=== PATIENT | female | born 1940 | race Caucasian/White ===

== ENCOUNTER 2021-05-16 15:25 | Emergency (ER) | payer MEDICARE, BC ==
[~2021-05-16] VITALS: Ht 157.5 cm; Wt 56.0 kg
--- NOTE | 2021-05-16 15:35 | PHYS DOC ---
General Adult EDM: Chief Complaint: MECHANICAL FALL HPI: HPI: Patient is a 80-year-old female brought in by EMS after a fall. Patient stepped off a ledge on a patio and fell onto her left side per denies any head injury loss conscious. Denies any blood thinner use. Complaining of pain in her left upper arm and left hip. Has not mailed bear weight since Review of Systems: Review of Systems: All other systems within normal limits except for as noted in the HPI Physical Exam: PE: Constitutional: Well developed, well nourished, no acute distress, non-toxic appearance. [] HENT: Normocephalic, atraumatic, bilateral external ears normal, nose normal. [] Eyes: PERRLA, conjunctiva normal, no discharge. [] Neck: No rigidity, supple, no stridor. [] Cardiovascular: Regular rate and rhythm, brisk cap refill [] Lungs & Thorax: Non labored symmetric respirations, no tachypnea or respiratory distress [] Abdomen: Soft, nondistended. Skin: Warm, dry, no erythema, no rash. [] Back: Unremarkable Extremities: No deformities, range of motion grossly intact, no lower extremity edema. Test with patient over left upper arm and left hip, deformity, no pain with passive leg roll [] Neurologic: Alert and oriented X 3, no focal deficits noted. [] Psychologic: Affect normal, judgement normal, mood normal. [] EKG: EKG: [] Radiology/Procedures: Radiology/Procedures: [address] [address] IMAGING REPORT Signed PATIENT: ELIZABETH HOOPER AACCOUNT: [id number] : 1940 LOCATION: ER AGE: 80 SEX: F EXAM STATUS: REG ER ORD. PHYSICIAN: STEPH SPARKS MD REASON: fall, left hip pain PROCEDURE: HUMERUS LEFT EXAM: Left humerus, 3 views. HISTORY: Pain. COMPARISON: None. FINDINGS: 3 views of the left humerus are obtained. There is no acute fracture, dislocation or subluxation. There is minimal glenohumeral and acromioclavicular joint spurring. IMPRESSION: No acute osseous finding. Electronically signed by: Yissel Caban MD (05/16/2021 4:54 PM) [id number] DICTATED AND SIGNED BY: YISSEL CABAN MD DATE: 05/16/211652 CC: STEPH SPARKS MD; NON,STAFF ~MTH0 0 [][place] [address] IMAGING REPORT Signed PATIENT: ELIZABETH HOOPER AACCOUNT: [id number] : 1940 LOCATION: ER AGE: 80 SEX: F EXAM STATUS: REG ER ORD. PHYSICIAN: STEPH SPARKS MD REASON: fall, left hip pain PROCEDURE: HIP LEFT 2V WITH PELVIS EXAM: Frontal pelvis with two-view left hip. HISTORY: Fall, left hip pain. COMPARISON: None. FINDINGS: There is an impacted, comminuted fracture of the left intertrochanteric femur. The joint spaces of both hips are maintained. Osteopenia is at least moderate. There are moderate degenerative changes of the lower lumbar spine with at least mild dextroscoliosis. IMPRESSION: 1. Impacted, comminuted fracture of the left intertrochanteric femur. Electronically signed by: Pradeep Alcantara MD (05/16/2021 4:59 PM) [facility] DICTATED AND SIGNED BY: ELANA ALCANTARA MD DATE: 05/16/211656 CC: STEPH SPARKS MD; NON,STAFF ~MTH0 0 Heart Score: C/O Chest Pain: No Risk Factors: Risk Factors: DM, Current or recent (<one month) smoker, HTN, HLP, family history of CAD, obesity. Risk Scores: Score 0 - 3: 2.5% MACE over next 6 weeks - Discharge Home Score 4 - 6: 20.3% MACE over next 6 weeks - Admit for Clinical Observation Score 7 - 10: 72.7% MACE over next 6 weeks - Early Invasive Strategies Course & Med Decision Making: Course & Med Decision Making Pertinent Labs and Imaging studies reviewed. (See chart for details) Also placed to Dr. Wheeler with orthopedics. Patient transferred to [place], admitted to hospitalist Dr. Matos CT scan ordered due to patient's age and fall from standing, patient refusing CT stating she does not want to "extra radiation" [] Carlos Disclaimer: Carlos Disclaimer: This electronic medical record was generated, in whole or in part, using a voice recognition dictation system. Departure Departure: Impression: Primary Impression: Fall (on) (from) other stairs and steps, initial encounter Additional Impression: Closed intertrochanteric fracture of left femur Disposition: 02 SHORT TERM HOSPITAL Condition: STABLE STEPH SPARKS MD May 16, 2021 15:35
--- NOTE | 2021-05-16 16:56 | RAD ---
EXAM: Left humerus, 3 views. HISTORY: Pain. COMPARISON: None. FINDINGS: 3 views of the left humerus are obtained. There is no acute fracture, dislocation or sublux ation. There is minimal glenohumeral and acromioclavicular joint spurring. IMPRESSION: No acute osseous finding. Electronically signed by: Yissel Rodriguez MD (05/16/2021 4:54 PM) [id number]
--- NOTE | 2021-05-16 17:02 | RAD ---
EXAM: Frontal pelvis with two-view left hip. HISTORY: Fall, left hip pain. COMPARISON: None. FINDINGS: There is an impacted, comminuted fracture of the left intertrochanteric femur. The joint sp aces of both hips are maintained. Osteopenia is at least moderate. There are moderate degenerative ch anges of the lower lumbar spine with at least mild dextroscoliosis. IMPRESSION: 1. Impacted, comminuted fracture of the left intertrochanteric femur. Electronically signed by: Pradeep Alcantara MD (05/16/2021 4:59 PM) [facility]
[2021-05-16 17:23] LABS: BASO % 0 % (0-3); EOS # 0.1 x10^3/uL (0.0-0.7); EOS % 1 % (0-3); HEMATOCRIT 38.8 % (36.0-47.0); HEMOGLOBIN 12.6 g/dL (12.0-15.5); LYMPH # 1.2 x10^3/uL (1.0-4.8); LYMPH % 10 % (24-48); MEAN CORPUSCULAR HEMOGLOBIN 30 pg (25-35); MEAN CORPUSCULAR HGB CONC 33 g/dL (31-37); MEAN CORPUSCULAR VOLUME 91 fL (79-100); MONO # 0.7 x10^3/uL (0.0-1.1); MONO % 6 % (0-9); NEUT # 10.3 x10^3uL (1.8-7.7); NEUT % 83 % (31-73); PLATELET COUNT 248 x10^3/uL (140-400); RED BLOOD COUNT 4.25 x10^6/uL (3.50-5.40); WHITE BLOOD COUNT 12.3 x10^3/uL (4.0-11.0)
[2021-05-16 17:31] LABS: CALCIUM 8.8 mg/dL (8.5-10.1); CREATININE 0.9 mg/dL (0.6-1.0); GFR 59.9; POTASSIUM 3.6 mmol/L (3.5-5.1)
[2021-05-16 17:37] LABS: ALBUMIN 3.8 g/dL (3.4-5.0); ALBUMIN/GLOBULIN RATIO 1.1 (1.0-1.7); TOTAL BILIRUBIN 0.3 mg/dL (0.2-1.0); TOTAL PROTEIN 7.3 g/dL (6.4-8.2)
--- NOTE | 2021-05-16 18:13 | RAD ---
EXAMINATION: Chest radiograph. VIEWS: Single AP view of the chest COMPARISON: None INDICATION:80 years, Female, preop. FINDINGS: Normal cardiomediastinal silhouette. Minimal left basilar curvilinear opacities favoring scarring and /or atelectasis. No focal consolidation. No pleural effusion or pneumothorax. No acute osseous proces s. IMPRESSION: No acute infiltrates Electronically signed by: Yo Christian DO (05/16/2021 6:10 PM) [facility]
[2021-05-16 19:25] VITALS: BP 164/86
--- NOTE | 2021-05-17 04:19 | EKG ---
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
== END 2021-05-16 19:26 | disposition short-term general hospital (02) ==
LOC: ER 15:25
DX: S72.142A Displaced intertrochanteric fracture of left femur, initial encounter for closed fracture (principal); Z20.822 Contact with and (suspected) exposure to COVID-19; W10.8XXA Fall (on) (from) other stairs and steps, initial encounter; Y93.89 Activity, other specified; Y92.89 Other specified places as the place of occurrence of the external cause; Y99.8 Other external cause status
CPT/HCPCS: 36415; 71045; 73060; 73502; 80053; 85025; 87426; 93005; 96374; 96376; 99285; C9803; J3010; U0003

== ENCOUNTER → 2021-06-04 | Outpatient (CLI) | payer MEDICARE, BC ==
[2021-05-16 19:25] VITALS: BP 164/86
--- NOTE | 2021-06-04 18:31 | RAD ---
EXAM: AP pelvis, AP and lateral views left hip DATE: 06/04/2021 2:30 PM INDICATION: Reason: LEFT HIP PAIN POST ORIF IN APRIL / . Instructions: / History: . COMPARISON: No Prior FINDINGS/ IMPRESSION: 1. IM nail fixation of the left intertrochanteric fracture, in good alignment without definite hardw are complication. Soft tissue swelling about the left hip. 2. Degenerative changes of spine are seen. Electronically signed by: Bassem Munoz MD (06/04/2021 6:29 PM) ROSALBA
== END ==
LOC: RAD 14:21
PROVIDERS: ATTEND Physician Assistant
DX: M79.89 Other specified soft tissue disorders (principal); M47.819 Spondylosis without myelopathy or radiculopathy, site unspecified; M25.552 Pain in left hip; Z98.890 Other specified postprocedural states
CPT/HCPCS: 73501

== ENCOUNTER → 2021-08-24 | Outpatient (CLI) | payer MEDICARE, BC ==
--- NOTE | 2021-08-25 08:21 | RAD ---
XR HIP (WITH OR WITHOUT PELVIS)LEFT 1 VIEW Clinical Indication: Reason: POST OP HIP REPLACEMENT APRIL 2021 Comparison: Left hip June 04, 2021. Findings: Redemonstrated internal fixation hardware of the intertrochanteric left femur fracture. There is incr eased callus formation along the fracture best seen on the frog-leg view. There is no new acute fract ure. There is no evidence of loosening. There is mild arthropathy of the hips for patient age. There is degenerative spondylosis of the lower lumbar spine. No acute pelvic fracture is seen. IMPRESSION: Stable internal fixation hardware. Increased callus formation of the intertrochanteric left femur fra cture. Electronically signed by: Jamarcus Madsen MD (08/25/2021 8:18 AM) [id number]
== END ==
LOC: RAD 15:11
PROVIDERS: ATTEND Physician Assistant
DX: M12.852 Other specific arthropathies, not elsewhere classified, left hip (principal); M47.816 Spondylosis without myelopathy or radiculopathy, lumbar region; Z98.890 Other specified postprocedural states
CPT/HCPCS: 73501

== ENCOUNTER → 2021-09-24 | Outpatient (CLI) | payer MEDICARE, BC ==
--- NOTE | 2021-09-24 16:10 | RAD ---
EXAMINATION: XR SHOULDER_RIGHT 2+ VIEWS CLINICAL HISTORY: Right shoulder pain. TECHNIQUE: XR SHOULDER_RIGHT 2+ VIEWS Number of Images/Views: 3 COMPARISON: None FINDINGS: Glenohumeral joint alignment maintained. Moderate hypertrophic acromioclavicular degenerative changes . No acute fracture. IMPRESSION: Moderate hypertrophic acromioclavicular degenerative changes. Electronically signed by: Roger Jean DO (09/24/2021 4:08 PM) [id number]
--- NOTE | 2021-09-24 16:14 | RAD ---
EXAMINATION: XR FOREARM_LEFT 2 VIEWS CLINICAL HISTORY: Left forearm pain . TECHNIQUE: XR FOREARM_LEFT 2 VIEWS Number of Images/Views: 2 COMPARISON: None FINDINGS: Impacted radial neck fracture with mild apex anterior-radial angulation. Remote nondisplaced fracture through the coronoid process suspected on lateral view. Joint spaces and alignment appear relatively well-maintained. Mild soft tissue swelling. Advanced degenerative changes first CMC joint, incompletely evaluated. IMPRESSION: Impacted and mildly angulated radial neck fracture. Electronically signed by: Roger Jean DO (09/24/2021 4:12 PM) [id number]
== END ==
LOC: RAD 10:48
PROVIDERS: ATTEND Orthopaedic Surgery Sports Medicine
DX: S52.132A Displaced fracture of neck of left radius, initial encounter for closed fracture (principal); M19.011 Primary osteoarthritis, right shoulder; M79.89 Other specified soft tissue disorders; X58.XXXA Exposure to other specified factors, initial encounter; Y93.89 Activity, other specified; Y92.89 Other specified places as the place of occurrence of the external cause; Y99.8 Other external cause status
CPT/HCPCS: 73030; 73090

== ENCOUNTER → 2021-10-08 | Outpatient (CLI) | payer MEDICARE, BC ==
--- NOTE | 2021-10-08 15:55 | RAD ---
XR HIP (WITH OR WITHOUT PELVIS)LEFT 1 VIEW 10/08/2021 Reason: LEFT HIP PAIN HX FRACTURE Comparison: Left hip radiograph 08/24/2021 Technique: AP of the pelvis, 2 additional views of the left hip Findings: Redemonstration of intramedullary bakari with sliding screw fixation of the proximal left femur. The int ertrochanteric fracture demonstrates sclerotic margins indicating healing. Impression: Continued healing of left intertrochanteric fracture with internal fixation. Electronically signed by: Pramod Simeon MD (10/08/2021 3:52 PM) [id number]
== END ==
LOC: RAD 12:46
PROVIDERS: ATTEND Physician Assistant
DX: S72.142D Displaced intertrochanteric fracture of left femur, subsequent encounter for closed fracture with routine healing (principal); X58.XXXD Exposure to other specified factors, subsequent encounter
CPT/HCPCS: 73501